=== PATIENT | male | born 1945 | race Caucasian/White ===

== ENCOUNTER 2019-04-17 11:54 | Emergency (ER) | payer OTHER ==
[~2019-04-17] VITALS: Ht 175.3 cm; Wt 100.0 kg
[~2019-04-17 11:54] MED LIST: ALEVE220 M1 PO; BACTRIM DS1 TAB PO; CELEBREX200 MG PO; DIOVAN160 MG PO; EFFEXOR XR150 MG OR; FLOMAX0.4 M1 PO; KEFLEX500 MG PO; METOPROL TAR50 MG PO; ULTRAM50 M1 PO
[2019-04-17] MEDS ORDERED: EPIPEN 2-P0.3 MG/0.3 IM (12:58)
[2019-04-17] MEDS ORDERED: DOXYCYC MONO100 M2 PO ×2 (12:58→12:59)
[2019-04-17] MEDS ORDERED: PREDNISONE50 MG PO (12:58)
[2019-04-17 13:16] VITALS: BP 161/87
== END 2019-04-17 13:25 | disposition home or self-care (01) | DRG 918 ==
LOC: ED → EDBD 11:54 → ED 11:54
DX: T63.451A Toxic effect of venom of hornets, accidental (unintentional), initial encounter (principal)